=== PATIENT | male | born 1970 | race Caucasian/White ===

== ENCOUNTER 2018-02-24 09:40 | Day surgery (SDC) | payer MEDICARE, MEDICAID ==
[~2018-02-24] VITALS: Ht 175.3 cm; Wt 89.1 kg
[~2018-02-24 09:40] MED LIST: EFAV1TAB PO; LISI-600 PO; OMEP20TA5 PO; SIMV20TA PO
[2018-02-24 09:49] VITALS: BP 148/106
[2018-02-24] MEDS ORDERED: fentaNYL/PF 50MCG/1 ML 2ML syringe ONE ×2 (10:14→10:15)
[2018-02-24] MEDS ORDERED: MIDAZolam 5mg/5ml vial ONE (10:15)
[2018-02-24] MEDS ORDERED: LIDOcaine Viscous 15ml cup ONE (10:15)
[2018-02-24] MEDS ORDERED: diphenhydrAMINE 50 mg/ml inj ONE (10:41)
[2018-02-24 11:10] VITALS: BP 129/93
[2018-02-24 11:20] VITALS: BP 124/69
[2018-02-24 11:30] VITALS: BP 111/74
[2018-02-24 11:40] VITALS: BP 129/90
== END 2018-02-24 12:00 | disposition home or self-care (01) ==
LOC: GI LAB 09:40
PROVIDERS: ATTEND Internal Medicine Gastroenterology
DX: Z09 Encounter for follow-up examination after completed treatment for conditions other than malignant neoplasm (principal); D13.2 Benign neoplasm of duodenum; K44.9 Diaphragmatic hernia without obstruction or gangrene; K29.80 Duodenitis without bleeding; I10 Essential (primary) hypertension; K21.9 Gastro-esophageal reflux disease without esophagitis; Z87.891 Personal history of nicotine dependence; Z87.19 Personal history of other diseases of the digestive system; Z72.89 Other problems related to lifestyle; Z90.49 Acquired absence of other specified parts of digestive tract; Z79.899 Other long term (current) drug therapy
CPT/HCPCS: 43239; 99153; G0500; J1200; J2250; J3010; J7030; 88305; A4620

== ENCOUNTER 2019-10-24 07:38 | Emergency (ER) | payer MEDICARE, MEDICAID ==
[~2019-10-24] VITALS: Ht 175.3 cm; Wt 97.7 kg
[2019-10-24 07:39] VITALS: BP 171/107
[2019-10-24] MEDS ORDERED: AZIT-72 PO (08:34)
== END 2019-10-24 08:40 | disposition home or self-care (01) ==
LOC: ER 07:39
DX: J40 Bronchitis, not specified as acute or chronic (principal); Z90.49 Acquired absence of other specified parts of digestive tract; Z79.899 Other long term (current) drug therapy; Z87.891 Personal history of nicotine dependence
CPT/HCPCS: 71045; 99283

== ENCOUNTER 2022-07-02 10:51 | Emergency (ER) | payer MEDICARE, MEDICAID ==
[~2022-07-02] VITALS: Ht 175.3 cm; Wt 109.1 kg
[~2022-07-02 10:51] MED LIST changes: -LISI-600 PO; +LISI20TA28 PO; +OMEP20TA43 PO; -OMEP20TA5 PO; +SIMV-342 PO; -SIMV20TA PO
[2022-07-02 11:04] VITALS: BP 153/93
[2022-07-02] MEDS ORDERED: PHEN1SUP96 PR (12:04)
[2022-07-02] MEDS ORDERED: HYDR28.316 TOP (12:04)
--- NOTE | 2022-07-02 12:12 | NUR ---
PT WAS SEEN, TREATED AND DC'D BY PROVIDER PRIOR TO [employer]
== END 2022-07-02 12:16 | disposition home or self-care (01) ==
LOC: ER 10:53
DX: K64.8 Other hemorrhoids (principal); Z90.49 Acquired absence of other specified parts of digestive tract; Z21 Asymptomatic human immunodeficiency virus [HIV] infection status; Z98.890 Other specified postprocedural states; Z79.899 Other long term (current) drug therapy
CPT/HCPCS: 99282

== ENCOUNTER 2023-09-14 06:12 | Emergency (ER) | payer MEDICARE, MEDICAID ==
[~2023-09-14] VITALS: Ht 175.3 cm; Wt 100.9 kg
[~2023-09-14 06:12] MED LIST changes: +HYDR28.316 TOP; +PHEN1SUP96 PR
[2023-09-14 06:18] VITALS: BP 156/90; PULSE 89; RESP 18; TEMP 98.5; O2SAT 97
[2023-09-14] MEDS ORDERED: AMOX-117 PO (07:25)
== END 2023-09-14 07:37 | disposition home or self-care (01) ==
LOC: ER 06:12
DX: J02.9 Acute pharyngitis, unspecified (principal); Z90.49 Acquired absence of other specified parts of digestive tract; Z79.899 Other long term (current) drug therapy
CPT/HCPCS: 99283